=== PATIENT | female | born 1975 | race African-American/Black ===

== ENCOUNTER 2016-09-02 11:38 | Emergency (ER) | payer SELFPAY ==
[2016-09-02 11:44] VITALS: BP 115/72; BMI 35.0
[2016-09-02] MEDS ORDERED: ATIVAN INJ 2 MG VIAL IVP ONE (12:06)
[2016-09-02] MEDS ORDERED: ATIVAN INJ 2 MG VIAL ONE (12:09)
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
[2016-09-02 12:13] LABS: BASOPHILS % (AUTO) 0.5 % (0.2-1.0); EOSINOPHILS # (AUTO) 0.1 x10^3/uL (0.0-0.2); EOSINOPHILS % (AUTO) 1.3 % (0.9-2.9); HEMOGLOBIN 12.3 g/dL (12.0-16.0); LYMPHOCYTES # (AUTO) 1.8 X10^3/uL (1.3-2.9); LYMPHOCYTES % (AUTO) 35.4 % (21.0-51.0); MEAN CORPUSCULAR HEMOGLOBIN 26.4 pg (27.0-34.0); MEAN CORPUSCULAR HGB CONC 32.5 g/dL (33.0-35.0); MEAN CORPUSCULAR VOLUME 81.2 fL (80.0-100.0); MEAN PLATELET VOLUME 9.4 fL (7.4-11.0); MONOCYTES # (AUTO) 0.5 x10^3/uL (0.3-0.8); MONOCYTES % (AUTO) 9.5 % (0.0-13.0); NEUTROPHILS # (AUTO) 2.7 x10^3/uL (2.2-4.8); NEUTROPHILS % (AUTO) 53.3 % (42.0-75.0); PLATELET COUNT 255 X10^3/uL (150.0-450.0); RED BLOOD COUNT 4.68 X10^6/uL (3.5-5.4); RED CELL DISTRIBUTION WIDTH 13.7 % (11.6-16.5); WHITE BLOOD COUNT 5.1 X10^3/uL (3.6-10.0)
--- NOTE | 2016-09-02 12:20 | RAD ---
HISTORY: Chest pain Study: Portable chest Comparison: July 17 Findings: The trachea is midline. The cardiac silhouette is unremarkable. The lungs are clear without focal infiltrate or effusion. The bony thorax is unremarkable. IMPRESSION: 1. No acute cardiopulmonary disease. Reported By:
[2016-09-02 12:45] LABS: ALANINE AMINOTRANSFERASE 24 Units/L (12-78); ALBUMIN 3.3 g/dL (3.4-5.0); ALKALINE PHOSPHATASE 54 Units/L (46-116); ASPARTATE AMINO TRANSFERASE 20 Units/L (15-37); BLOOD UREA NITROGEN 6 mg/dL (7-18); CARBON DIOXIDE 26.8 mmol/L (21-32); CHLORIDE 104 mmol/L (98-107); CKMB % 0.6 % (<4); COR CA(FOR HYPOALB) 9.6 mg/dL (8.5-10.1); CREATINE KINASE 166 Units/L (26-192); CREATINE KINASE MB < 1.0 ng/mL (0-4.0); CREATININE 1.01 mg/dL (0.55-1.02); GLUCOSE 91 mg/dL (65-99); MAGNESIUM 1.6 mg/dL (1.7-2.9); SODIUM 142 mmol/L (136-145); TOTAL PROTEIN 7.6 g/dL (6.4-8.2); TROPONIN I < 0.02 ng/mL (0-1.5); eGFR BLACK RACES > 60 (>60); eGFR NON BLACK RACES > 60 (>60)
[2016-09-02] MEDS ORDERED: K-LYTE EFFERVESCENT ONE (12:59)
[2016-09-02] MEDS ORDERED: TORADOL 30 MG VIAL ONE (12:59)
[2016-09-02] MEDS ORDERED: K-LYTE EFFERVESCENT PO SCH (13:00)
[2016-09-02] MEDS ORDERED: TORADOL 30 MG VIAL IVP ONE (13:01)
== END 2016-09-02 14:21 | disposition home or self-care (01) ==
LOC: ER 11:44
DX: R07.89 Other chest pain (principal); F41.1 Generalized anxiety disorder; E87.6 Hypokalemia; M79.621 Pain in right upper arm; Y04.0XXA Assault by unarmed brawl or fight, initial encounter; Y92.9 Unspecified place or not applicable
CPT/HCPCS: 36415; 71010; 80053; 82550; 82553; 83735; 84484; 85025; 85378; 85610; 85730; 93005; 93010; 96365; 96374; 96375; 99283; J1885; J2060

== ENCOUNTER 2017-08-29 12:24 | Emergency (ER) | payer MEDICAID, OTHER ==
[2017-08-29 12:44] VITALS: BP 110/70; BMI 35.9
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
[2017-08-29] MEDS ORDERED: NORFLEX INJ IM ONE (13:19)
[2017-08-29] MEDS ORDERED: TORADOL 60 MG VIAL IM ONE (13:19)
[2017-08-29] MEDS ORDERED: TORADOL 60 MG VIAL ONE (13:20)
[2017-08-29] MEDS ORDERED: NORFLEX INJ ONE (13:20)
== END 2017-08-29 13:56 | disposition home or self-care (01) ==
LOC: ER 12:56
DX: M25.511 Pain in right shoulder (principal); M79.1 Myalgia
CPT/HCPCS: 96372; 99282; J1885; J2360